=== PATIENT | male | born 2000 | race Caucasian/White ===

== ENCOUNTER 2020-08-22 11:09 | Emergency (ER) | payer BC ==
[~2020-08-22 11:09] MED LIST: BENTYL 10MG CAP10 MG PO; PROTONIX 20 MG20 MG PO; ZOFRAN4 MG PO
[2020-08-22] MEDS ORDERED: HYDROCODON-ACE1 EAC4 PO (12:26)
[2020-08-22] MEDS ORDERED: AUGMENTIN 875-1 EACH PO (12:26)
== END 2020-08-22 12:45 | disposition home or self-care (01) ==
LOC: ER1 11:09
DX: H66.91 Otitis media, unspecified, right ear (principal)
CPT/HCPCS: 99282